=== PATIENT | male | born 1955 | race Caucasian/White ===

== ENCOUNTER → 2016-09-05 | Outpatient (CLI) | payer MEDICARE ==
--- NOTE | 2016-09-05 11:43 | ST Modified Barium Swallow ---
Recommendation - Recommendations Recommendations: 1) DIET: recommend puree and thin. No straws. Pt observed to aspirate with thin by straw. 2) Recommend speech therapy after GI issues are resolved. 3) Alternate bites and sips- to aid in clearing residuals of solids and pharynx. 4) Dry swallow after swallows of thin- to clear residuals of thin. SUMMARY: Pt presents with a moderate-severe oropharyngeal dysphagia characterized by reduced base of tongue reduced epiglottic inversion, decreased UES opening, reduced pressure generation, reduced pharyngeal peristalsis resulting in pharyngeal residuals of thin liquids and solids and aspiration of thin by straw. Alternating bites and sips observed to aid in clearing residuals of solids in valleculae and pyriforms. Dry swallow after sips of thin observed to aid in clearing residuals of thin. Medical Diagnoses - Medical Diagnoses Medical Diagnosis Description & ICD-10 Code(s): k22.2 esophgeal obstruction Other Medical Diagnoses/Co-Morbidities: weightloss, esophageal rupture in 2014, esophageal obstruction, fractured skull in 70's with x2 brain surgeries. - ICD-10 Tx Diagnosis Coding (1) Dysphagia, oropharyngeal phase ICD-10 Code(s): R13.12 - DYSPHAGIA, OROPHARYNGEAL PHASE (2) Dysphagia, pharyngeal phase ICD-10 Code(s): R13.13 - DYSPHAGIA, PHARYNGEAL PHASE (3) Dysphagia, pharyngoesophageal phase ICD-10 Code(s): R13.14 - DYSPHAGIA, PHARYNGOESOPHAGEAL PHASE ST Modified Barium Swallow - General Date: 09/05/16 Referring Physician: Jhonny Flores MD Risks/Precautions: Falls - walks with cane Date of Onset: 09/05/14 Reason for Referral: esophageal obstruction - History History obtained from: Patient, Parent/Caregiver - pt's -: Medical - Pt reports coughing and choking with meals and throughout the day. Pt's reports pt only able to eat larose soup, pea soup, and drink ensure due to difficulty swallowing. also states pt has lost 10-15 lbs in past month and a half. Pt endorses globus sensation in mid chest during meals. Pt denies history of PNA or bronchitis. Pt states had ruptured esophagus in 2014 and states majority of swallowing problems began around this time. Pt's states most recent EGD a month ago was not able to be completed due to esophageal obstruction. reports possible "EGD dialation with stent placement" to be completed. PMHx: weightloss, esophageal rupture in 2015, esophageal obstruction , fractured skull in 70's with x2 brain surgeries, diabetes. Medications: omeprozole, metformin, abilify, depakote Allergies: quetiapine fumarate - Functional Status Prior Functional Status: INDEPENDENT: feeding Current Functional Limitations: feeding - Subjective Patient/caregiver goal(s): safe swallow, r/o aspiration Cognitive-Linguistic Function: WNL Speech Intelligibility: WNL Current Nutritional Means: PO Current PO diet: Pureed, Soft Current symptoms: Weight loss, Poor intake, Coughing, c/o Globus sensation - mid chest Pain: 3/5 - chest - Objective Assessment: Upright, Left Lateral - Food Trials Used Food trials used: Thin liquids, Pureed, Soft solids The patient: Was Able to Self Feed, via cup, via spoon, via straw - Oral-Motor Skills Velo-pharyngeal function: Unremarkable Laryngeal Function: Volitional Cough, Volitional Swallow - Assessment Oral prep: Normal Labial closure: Adequate Leakage: None Mastication: Adequate Lingual Movement: Normal Oral stage: Normal for this Procedure - Pharyngeal Stage Initiation of Pharyngeal Stage Reflex: Normal Decreased laryngeal elevation: Yes - mild-moderate Reduced Velopharyngeal Closure: no Reduced pressure generation: Yes - moderate-severe reduced tongue-based retraction: Yes - moderate-severe Pre-swallow pooling in valleculae: None Pre-Swallow pooling in pyriforms: None Reduced Thyro-Hyoid approximation: Yes - mild-moderate Reduced epiglottic excursion: Yes - mild-moderate Reduced pharyngeal peristalsis/contraction: Yes - moderate Post-swallow residulas vallecular: Significant - mild on thin; moderate on puree ; moderate-severe on soft solids Post-Swallow residuals in pyriforms: Moderate - mild on thin; mild-moderate on puree and soft solids - Esophageal Stage Cricopharyngeal Function: Impaired - reduced - Fall Risk Assessment Medications/Conditions that increase fall risks include: Antidepressants, sedatives, anti-arrhythmic, diuretic, benzodiazipenes, neuroleptics. BP regulation problems, cardiac problems, balance or gait deficits, neurological problems. Is patient considered at risk for falls: yes Fall Risk Actions Taken: Pt physician notified - Behavioral Observations During evaluation process patient: was pleasant, was cooperative, able to answer questions, provided medical history - Treatment / Educational Needs: Treatment/Education Needs: Treatment consisted of patient education on the role of the Speech Pathologist. Patient's plan of care and golas were communicated as well as scheduling and attendance policies. Recommendations for initial home program were shared. Patient demonstrated understanding and verbalized agreement. Initial home program recommendations: Pt and pt's provided with verbal and written education on dysphagia, aspiration PNA, and recommendations from study. Pt and pt's asking appropriate questions. - Impression/Summary Tracheal Aspiration: yes - on thin by straw, during swallow Ineffective compensatory strategies: chin tuck Patient presents with: Pharyngeal stage dysph., Oral-Pharyngeal dysph. Risk of Aspiration: Moderate - mild-moderate Risk of nutritional compromise: Severe - Recommendations NPO: no Solid diet recommendations: Pureed Liquid Diet Modification: Thin Strict aspiration precautions: Yes Pt/Family education and followup with MD: Yes Recommended techniques: Fully Upright During Meal, Small Bites and Sips, Alternate Bites/Sips Supervision: Distant Information, Precautions and Recommendations: Patient (Written), Patient (Verbal ) - Time Total Time: 30 - Plan of Care Strategies to optimize patient understanding include:: ongoing assessment of educational needs, implementation of educational strategies, and re-education. - - -: Thank you for the opportunity to work with this patient and his/her family. Should you have any questions about this patient's plan or progress, I can be reached at [phone]. Charge G Code? - - -: Yes ST F.L. Impairment Category - Rationale Based On Rationale Based On: Clin Find., Obj Measures - Swallowing Current G8996: CK 40-59% Impaired Goal G8997: CK 40-59% Impaired Discharge G8998: CK 40-59% Impaired
== END ==
LOC: RAD 07:36
PROVIDERS: ATTEND Internal Medicine Gastroenterology
DX: K22.2 Esophageal obstruction (principal); R13.12 Dysphagia, oropharyngeal phase
CPT/HCPCS: 74230; 92611; G8996; G8997; G8998

== ENCOUNTER 2016-09-13 18:06 | Emergency (ER) | payer MEDICARE ==
--- NOTE | 2016-09-14 11:28 | EKG REPORT ---
SEVERITY:- ABNORMAL ECG - SINUS RHYTHM SHORT CT INTERVAL, ACCELERATED AV CONDUCTION PROBABLE LVH WITH SECONDARY REPOL ABNRM LATERAL INFARCT, AGE INDETERMINATE : Confirmed by: Julio Chauhan 14-Sep-2016 11:27:13
== END 2016-09-13 18:44 | disposition left against medical advice (07) ==
LOC: ER 18:06
DX: Z53.21 Procedure and treatment not carried out due to patient leaving prior to being seen by health care provider (principal)
CPT/HCPCS: 93005; 93010

== ENCOUNTER 2017-10-30 08:21 | Emergency (ER) | payer OTHER, MEDICARE ==
[2017-10-30] MEDS ORDERED: NORMAL SALINE 1000 ML 1,000 ML IV ONE (09:01)
--- NOTE | 2017-10-30 09:02 | ER Document Report ---
ED GI/ - General Chief Complaint: Vomiting Stated Complaint: VOMITING Time Seen by Provider: 10/30/17 08:40 Mode of Arrival: Ambulatory Information source: Patient Notes: 62-year-old male to the emergency department chief complaint of difficulty swallowing. Has a long-standing history of esophageal strictures I for esophageal rupture in 2015. Has had multiple dilations. Recent barium swallow which was positive for some aspiration with thin liquids. Has not been able to eat or drink anything for the last several days. reports with confidentiality that he smoked some crack and drink alcohol a couple weeks ago and this made everything worse. Followed by the [facility]. Denies any abdominal pain. Occasional shortness of breath. TRAVEL OUTSIDE OF THE [place] IN LAST 30 DAYS: No - HPI Onset: Other - Chronic Severity at maximum: Moderate Severity in ED: Moderate - Related Data Allergies/Adverse Reactions: quetiapine fumarate [From Seroquel] Allergy (Verified 10/30/17 08:25) involuntary uncontrolleable movement Past Medical History - General Information source: Patient, Relative, [facility] Records - Social History Smoking Status: Current Every Day Smoker Cigarette use (# per day): Yes Chew tobacco use (# tins/day): No Smoking Education Provided: Yes Frequency of alcohol use: Occasional Drug Abuse: Cocaine Lives with: Spouse/Significant other Family History: Reviewed & Not Pertinent - Past Medical History Cardiac Medical History: Reports: Hx Heart Attack - "silent" Endocrine Medical History: Reports: Hx Diabetes Mellitus Type 2 Psychiatric Medical History: Reports: Hx Depression Past Surgical History: Reports: Hx Tonsillectomy, Hx WELDER GAS Shunt - Immunizations Hx Diphtheria, Pertussis, Tetanus Vaccination: Yes Hx Pneumococcal Vaccination: 06/13/11 Review of Systems - Review of Systems Constitutional: Malaise, Weakness. denies: Fever EENT: Throat pain, Difficulty swallowing. denies: Blurred vision, Nose pain, Mouth pain, Mouth swelling Cardiovascular: Palpitations. denies: Chest pain, Heart racing Respiratory: Short of breath. denies: Hurts to breathe, Wheezing Gastrointestinal: Abdominal pain, Vomiting. denies: Diarrhea, Nausea Musculoskeletal: denies: Back pain, Gout, Joint pain Skin: denies: Dryness, Lesions, Rash Hematologic/Lymphatic: denies: Anemia, Blood clots, Easy bleeding, Easy bruising Neurological/Psychological: denies: Confusion, Dementia, Weakness, Numbness Physical Exam - Vital signs Vitals: Temp Pulse Resp BP Pulse Ox 97.3 F 115 H 18 106/62 100 10/30/17 08:30 10/30/17 08:30 10/30/17 08:30 10/30/17 08:30 10/30/17 08:30 Interpretation: Tachycardic - General General appearance: Appears well, Alert Notes: Thin, frail cachectic looking individual - HEENT Head: Normocephalic, Atraumatic Eyes: Normal Pupils: PERRL - Respiratory Respiratory status: No respiratory distress Chest status: Nontender Breath sounds: Normal Chest palpation: Normal - Cardiovascular Rhythm: Tachycardia Heart sounds: Normal auscultation Murmur: No - Abdominal Inspection: Normal, Other - Large midline abdominal scar, skin is hanging off of the torso demonstrating significant weight loss Distension: No distension Bowel sounds: Normal Tenderness: Nontender Organomegaly: No organomegaly - Back Back: Normal, Nontender - Extremities General upper extremity: Normal inspection, Nontender, Normal color, Normal ROM , Normal temperature General lower extremity: Normal inspection, Nontender, Normal color, Normal ROM , Normal temperature, Normal weight bearing. No: Lucina's sign - Neurological Neuro grossly intact: Yes Cognition: Normal Orientation: AAOx4 Dean Coma Scale Eye Opening: Spontaneous Dean Coma Scale Verbal: Oriented [place] Coma Scale Motor: Obeys Commands Dean Coma Scale Total: 15 Speech: Normal Motor strength normal: LUE, RUE, LLE, RLE Sensory: Normal - Psychological Associated symptoms: Normal affect, Normal mood - Skin Skin Temperature: Warm Skin Moisture: Dry Skin Color: Normal Course - Re-evaluation Re-evalutation: 10/30/17 09:26 The patient with chronic esophageal strictures and difficulty with eating. Will get basic labs. Smells of light ketosis. Will get chest x-ray, IV, IV fluids, basic labs and reassess. Patient demonstrating significant signs of wasting may need to be admitted. Will discuss with patient possibility of that as well. 10/30/17 13:18 Laboratory 10/30/17 10/30/17 10/30/17 09:22 09:40 11:40 WBC 19.9 H RBC 6.25 H Hgb 13.9 Hct 44.2 MCV 71 L MCH 22.2 L MCHC 31.5 L RDW 29.6 H Plt Count 368 Total Counted 100 Seg Neutrophils % Not Reportable Seg Neuts % (Manual) 88 H Lymphocytes % Not Reportable Lymphocytes % (Manual) 11 L Monocytes % Not Reportable Monocytes % (Manual) 1 L Eosinophils % Not Reportable Eosinophils % (Manual) 0 Basophils % Not Reportable Basophils % (Manual) 0 Absolute Neutrophils Not Reportable Abs Neuts (Manual) 17.5 H Absolute Lymphocytes Not Reportable Abs Lymphs (Manual) 2.2 Absolute Monocytes Not Reportable Abs Monocytes (Manual) 0.2 Absolute Eosinophils Not Reportable Absolute Eos (Manual) 0.0 Absolute Basophils Not Reportable Abs Basophils (Manual) 0.0 Toxic Granulation SLIGHT Platelet Comment ADEQUATE Hypochromasia 1+ Anisocytosis 3+ Microcytosis 2+ Target Cells 1+ Schistocytes 1+ VBG pH 7.41 VBG pCO2 63.0 VBG HCO3 39.3 H VBG Base Excess 11.8 Sodium 147.1 H Potassium 3.7 Chloride 92 L Carbon Dioxide 34 H Anion Gap 21 H BUN 33 H Creatinine 0.98 Est GFR ( Amer) > 60 Est GFR (Non-Af Amer) > 60 Glucose 140 H Calcium 10.6 H Total Bilirubin 1.0 Direct Bilirubin 0.8 H Neonat Total Bilirubin Not Reportable Neonat Direct Bilirubin Not Reportable Neonat Indirect Bili Not Reportable AST 24 ALT 31 Alkaline Phosphatase 158 H Troponin I Total Protein 8.8 H Albumin 4.7 Lipase 194.0 Serum Alcohol < 10 10/30/17 11:40 WBC RBC Hgb Hct MCV MCH MCHC RDW Plt Count Total Counted Seg Neutrophils % Seg Neuts % (Manual) Lymphocytes % Lymphocytes % (Manual) Monocytes % Monocytes % (Manual) Eosinophils % Eosinophils % (Manual) Basophils % Basophils % (Manual) Absolute Neutrophils Abs Neuts (Manual) Absolute Lymphocytes Abs Lymphs (Manual) Absolute Monocytes Abs Monocytes (Manual) Absolute Eosinophils Absolute Eos (Manual) Absolute Basophils Abs Basophils (Manual) Toxic Granulation Platelet Comment Hypochromasia Anisocytosis Microcytosis Target Cells Schistocytes VBG pH VBG pCO2 VBG HCO3 VBG Base Excess Sodium Potassium Chloride Carbon Dioxide Anion Gap BUN Creatinine Est GFR ( Amer) Est GFR (Non-Af Amer) Glucose Calcium Total Bilirubin Direct Bilirubin Neonat Total Bilirubin Neonat Direct Bilirubin Neonat Indirect Bili AST ALT Alkaline Phosphatase Troponin I 0.061 Total Protein Albumin Lipase Serum Alcohol Chest X-Ray 10/30/17 09:01 IMPRESSION: NO ACUTE RADIOGRAPHIC FINDING IN THE CHEST. Chest CT 10/30/17 11:38 IMPRESSION: Thick walled esophagus with esophageal air fluid level from reflux. Diffuse esophagitis is suspected. No mediastinal air or free fluid worrisome for esophageal rupture Esophagus X-Ray 10/30/17 11:38 IMPRESSION: Diffusely abnormal esophagus. Diffuse mucosal irregularity from the thoracic inlet through the GE junction. Long segment of stricture from the denae to the GE junction. Findings most likely represent stricture and esophagitis from reflux. Superimposed infection with Janessa, superimposed superficial mucosal tumor could not be excluded. Findings discussed with Dr. Bender in the emergency room Patient has an elevated WBC count, cachectic and slightly elevated troponin. Unchanged EKG from prior. Patient needs to be seen at a hospital that has horticultural services supervisor as well as a consult for cardiothoracic surgery as I believe patient would likely benefit from having a partial esophagectomy. There is a high concern in my opinion that this is malignancy causing worsening issues. I have contacted the [facility] in [place]. Attempting to transfer at this time. 10/30/17 14:17 Have been able to consult with [facility]. Dr. Carson accepting. Waiting on transfer at this time. We will continue to trend the troponins. 10/30/17 14:29 10/30/17 16:27 Second troponin slightly elevated as well as 0.066. Aspirin has been given. IV placed in the left AC under ultrasound guidance. No complications. Patient has been accepted and will transfer shortly. Of note, did not start on Lovenox or heparin due to the fact the patient has previous history of esophageal rupture and concerned at this time for significant esophagitis and there is an increased risk for bleeding. Do not feel compelled at this time to overly treat the slightly elevated troponin. Giving second liter of fluid at this time. Zosyn has been given. Pain medication given. 10/30/17 16:28 - Vital Signs Vital signs: Temp Pulse Resp BP Pulse Ox 97.3 F 115 H 16 90/79 L 97 10/30/17 08:30 10/30/17 08:30 10/30/17 16:06 10/30/17 16:06 10/30/17 16:06 - Laboratory Result Diagrams: 10/30/17 11:40 10/30/17 09:40 Laboratory results interpreted by me: 10/30/17 10/30/17 10/30/17 09:22 09:40 11:40 WBC 19.9 H RBC 6.25 H MCV 71 L MCH 22.2 L MCHC 31.5 L RDW 29.6 H Seg Neuts % (Manual) 88 H Lymphocytes % (Manual) 11 L Monocytes % (Manual) 1 L Abs Neuts (Manual) 17.5 H VBG HCO3 39.3 H Sodium 147.1 H Chloride 92 L Carbon Dioxide 34 H Anion Gap 21 H BUN 33 H Glucose 140 H Calcium 10.6 H Direct Bilirubin 0.8 H Alkaline Phosphatase 158 H Total Protein 8.8 H - EKG Interpretation by Mn EKG shows normal: Sinus rhythm, Intervals, QRS Complexes, ST-T Waves Randle/QRS: Left axis deviation Critical Care Note - Critical Care Note Total time excluding time spent on procedures (mins): 45 Comments: Hypotension, leukocytosis, coordination of care, transfer to higher level of care. Discharge - Discharge Clinical Impression: Esophageal stricture, Esophagitis, Elevated troponin I level Leukocytosis Qualifiers: Leukocytosis type: bandemia Qualified Code(s): D72.825 - Bandemia Condition: Good Disposition: [facility]
[2017-10-30] MEDS ORDERED: ONDANSETRON HCL INJ/PF 4 MG/2 ML SDV IV ONE ×2 (09:27→11:16)
--- NOTE | 2017-10-30 09:37 | RADIOLOGY REPORT (SQ) ---
EXAM DESCRIPTION: CHEST SINGLE VIEW COMPLETED DATE/TIME: 10/30/2017 9:18 am REASON FOR STUDY: sob COMPARISON: 05/15/2015 EXAM PARAMETERS: NUMBER OF VIEWS: One view. TECHNIQUE: Single frontal radiographic view of the chest acquired. RADIATION DOSE: NA LIMITATIONS: None. FINDINGS: LUNGS AND PLEURA: No opacities, masses or pneumothorax. No pleural effusion. MEDIASTINUM AND HILAR STRUCTURES: No masses. Contour normal. HEART AND VASCULAR STRUCTURES: Heart normal in size. Normal vasculature. BONES: No acute findings. HARDWARE: None in the chest. OTHER: No other significant finding. IMPRESSION: NO ACUTE RADIOGRAPHIC FINDING IN THE CHEST. TECHNICAL DOCUMENTATION: JOB ID: [id number] [employer]- All Rights Reserved Reading location - IP/workstation name: [email or web address]
[2017-10-30 09:51] LABS: VENOUS BLOOD BASE EXCESS 11.8 mmol/L; VENOUS BLOOD HCO3 39.3 mmol/L (20-32); VENOUS BLOOD PH 7.41 (7.30-7.42)
[2017-10-30 10:10] LABS: ALANINE AMINOTRANSFERASE 31 U/L (21-72); ALBUMIN 4.7 g/dL (3.5-5.0); ALCOHOL < 10 mg/dL (NONE DETECTED); ALKALINE PHOSPHATASE 158 U/L (38-126); ASPARTATE AMINO TRANSFERASE 24 U/L (17-59); BILIRUBIN,DIRECT 0.8 mg/dL (0.0-0.4); BLOOD UREA NITROGEN 33 mg/dL (7-20); CALCIUM 10.6 mg/dL (8.4-10.2); CARBON DIOXIDE 34 mmol/L (22-30); CHLORIDE 92 mmol/L (98-107); GLUCOSE 140 mg/dL (75-110); POTASSIUM 3.7 mmol/L (3.6-5.0); TOTAL PROTEIN 8.8 g/dL (6.3-8.2)
[2017-10-30 10:15] LABS: ANION GAP 21 (5-19); SODIUM 147.1 mmol/L (137-145)
[2017-10-30] MEDS ORDERED: FENTANYL CITRATE INJ/PF 100 MCG/2 ML AMPUL IV ONE (11:16)
[2017-10-30] MEDS ORDERED: FAMOTIDINE INJ/PF 20 MG/2 ML SDV IV ONE (11:16)
[2017-10-30 12:03] LABS: HEMATOCRIT 44.2 % (37.9-51.0); HEMOGLOBIN 13.9 g/dL (13.5-17.0); MEAN CORPUSCULAR HEMOGLOBIN 22.2 pg (27.0-33.4); MEAN CORPUSCULAR HGB CONC 31.5 g/dL (32.0-36.0); MEAN CORPUSCULAR VOLUME 71 fl (80-97); PLATELET COUNT 368 10^3/uL (150-450); RED BLOOD COUNT 6.25 10^6/uL (4.35-5.55); RED CELL DISTRIBUTION WIDTH 29.6 % (11.5-14.0); WHITE BLOOD COUNT 19.9 10^3/uL (4.0-10.5)
[2017-10-30 12:20] LABS: ABSOLUTE LYMPHOCYTES# (MANUAL) 2.2 10^3/uL (0.5-4.7); ABSOLUTE MONOCYTES # (MANUAL) 0.2 10^3/uL (0.1-1.4); ABSOLUTE NEUTROPHILS# (MANUAL) 17.5 10^3/uL (1.7-8.2); BASOPHILS % (MANUAL) 0 % (0-2); EOSINOPHILS % (MANUAL) 0 % (0-6); LYMPHOCYTES % (MANUAL) 11 % (13-45); MONOCYTES % (MANUAL) 1 % (3-13); SEGMENTED NEUTROPHILS % (MAN) 88 % (42-78); TOTAL CELLS COUNTED 100
[2017-10-30 12:21] LABS: ANISOCYTOSIS 3+; HYPOCHROMASIA 1+; TOXIC GRANULATION SLIGHT
[2017-10-30 12:22] LABS: PLATELET COMMENT ADEQUATE; SCHISTOCYTES 1+; TARGET CELLS 1+
[2017-10-30] MEDS ORDERED: PIPERACILLIN/TAZOBACTAM 3.375 GM VIAL IV ONE (13:03)
--- NOTE | 2017-10-30 13:03 | RADIOLOGY REPORT (SQ) ---
EXAM DESCRIPTION: CT CHEST WITH COMPLETED DATE/TIME: 10/30/2017 12:10 pm REASON FOR STUDY: chest pain, hx of esophageal rupture COMPARISON: CT angio chest 05/15/2015 Chest films 05/27/2012, 12/31/2012, 05/15/2015, 10/30/2017 TECHNIQUE: CT scan of the chest performed using helical scanning technique with dynamic intravenous contrast injection. Images reviewed with lung, soft tissue and bone windows. Reconstructed coronal and sagittal MPR images reviewed. All images stored on PACS. All CT scanners at this facility use dose modulation, iterative reconstruction, and/or weight based d osing when appropriate to reduce radiation dose to as low as reasonably achievable (ALARA). [facility]: Dose Right [facility]: CareDose [facility]: Dose Right [facility]: Teradose 4D [facility]: Cartilix CONTRAST TYPE AND DOSE: contrast/concentration: Isovue 370.00 mg/ml; Total Contrast Delivered: 75.7 ml; Total Saline Delivered: 20.0 ml RENAL FUNCTION: Creatinine 0.98 RADIATION DOSE: CT Rad equipment meets quality standard of care and radiation dose reduction techniq ues were employed. CTDIvol: 5.2 mGy. DLP: 212 mGy-cm. . LIMITATIONS: None. FINDINGS: LUNGS AND PLEURA: Mild changes of centrilobular emphysema in the upper lobes bilaterally. Bandlike scarring in the bilateral posterior costophrenic sulci. No acute infiltrates. No pleural effusion. No pneumothorax. HILAR AND MEDIASTINAL STRUCTURES: Esophagus is diffusely abnormal. There is extensive esophageal wal l thickening. An air-fluid level in the esophagus is present from reflux. This puts the patient at risk for aspiration pneumonia. No mediastinal air. No abnormal mediastinal fluid. HEART AND VASCULAR STRUCTURES: No aneurysm or dissection. No central pulmonary emboli. No pericardi al effusion. HARDWARE: None in the chest. UPPER ABDOMEN: No significant findings. Limited exam. THYROID AND OTHER SOFT TISSUES: No masses. No adenopathy. BONES: Old T10 compression deformity OTHER: No other significant finding. IMPRESSION: Thick walled esophagus with esophageal air fluid level from reflux. Diffuse esophagitis is suspected. No mediastinal air or free fluid worrisome for esophageal rupture TECHNICAL DOCUMENTATION: JOB ID: [id number] Quality ID # [id number]: Final reports with documentation of one or more dose reduction techniques (e.g., Au tomated exposure control, adjustment of the mA and/or kV according to patient size, use of iterative reconstruction technique) 2010 [employer]- All Rights Reserved Reading location - IP/workstation name: [facility] [email or web address]
--- NOTE | 2017-10-30 13:13 | RADIOLOGY REPORT (SQ) ---
EXAM DESCRIPTION: BARIUM SWALLOW ESOPHAGUS COMPLETED DATE/TIME: 10/30/2017 12:44 pm REASON FOR STUDY: hx of esophageal stricture COMPARISON: Cookie swallow 09/05/2016 CT chest 10/30/2017, 05/15/2015 TECHNIQUE: Under fluoroscopic guidance, patient ingested effervescent granules followed by thick and thin barium. Fluoroscopic spot images and routine radiographic images acquired and stored on PACS. 12 MM BARIUM TABLET GIVEN: no LIMITATIONS: None. FLUOROSCOPY TIME: FLUORO TIME: 1 minutes 45 seconds 9 series of digital images saved to PACS. FINDINGS: NEUROMUSCULAR COORDINATION OF SWALLOW: No subglottic aspiration on today's study. Please note patient aspirated thin liquid barium during video assisted speech pathology swelling study 2016. ESOPHAGEAL MOTILITY: Diffuse decreased motility ESOPHAGEAL MUCOSA: Esophagus is diffusely thick walled. There is a long segment of profound mucosal irregularity, from the upper esophagus through the GE junction. From the denae down through the GE junction, a long segment of diffuse narrowing is present with a t ight stricture measuring about 6 mm in greatest diameter. Findings are worrisome for diffuse reflux esophagitis. Superimposed Janessa could not be excluded. Because of the diffuse irregularity, diffuse metaplasia of the mucosa/tumor could not be excluded. Findings discussed with Dr. Bender in the emergency room GASTRO-ESOPHAGEAL JUNCTION: No hiatal hernia. Unprovoked gastroesophageal reflux NON-GI TRACT STRUCTURES: No significant finding. OTHER: No other significant finding. IMPRESSION: Diffusely abnormal esophagus. Diffuse mucosal irregularity from the thoracic inlet thro ugh the GE junction. Long segment of stricture from the denae to the GE junction. Findings most li luis represent stricture and esophagitis from reflux. Superimposed infection with Janessa, superimpo sed superficial mucosal tumor could not be excluded. Findings discussed with Dr. Bender in the emergency room COMMENT: Quality ID [id number]: Final reports for procedures using fluoroscopy that document radiation exp osure indices, or exposure time and number of fluorographic images (if radiation exposure indices are not available) TECHNICAL DOCUMENTATION: JOB ID: [id number] [employer]- All Rights Reserved Reading location - IP/workstation name: [email or web address]
[2017-10-30] MEDS ORDERED: ASPIRIN 300 MG SUPP, RECTAL PR ONE (13:21)
[2017-10-30] MEDS ORDERED: POTASSI CL 20 MEQ/D5-1/2NS 1L 1,000 ML IV ONE (14:19)
--- NOTE | 2017-10-30 15:52 | EKG REPORT ---
SEVERITY:- ABNORMAL ECG - SINUS RHYTHM PROBABLE LVH WITH SECONDARY REPOL ABNRM BORDERLINE INFERIOR Q WAVES LATERAL INFARCT, AGE INDETERMINATE BORDERLINE PROLONGED QT INTERVAL : Confirmed by: Julio Chauahn 30-Oct-2017 15:51:33
[2017-10-30] MEDS ORDERED: FENTANYL CITRATE INJ/PF 100 MCG/2 ML AMPUL IV PRN (16:28)
[2017-10-30 17:34] VITALS: BP 111/78
--- NOTE | 2017-10-30 17:34 | ER Document Report ---
Doctor's Note Notes: 10/30/17 17:34 Pt evaluated and is stable at this time
== END 2017-10-30 17:47 | disposition short-term general hospital (02) ==
LOC: ER 08:21
DX: K22.2 Esophageal obstruction (principal); K20.9 Esophagitis, unspecified; R74.8 Abnormal levels of other serum enzymes; D72.825 Bandemia; I95.9 Hypotension, unspecified; I25.2 Old myocardial infarction; F14.10 Cocaine abuse, uncomplicated; E11.9 Type 2 diabetes mellitus without complications; R53.81 Other malaise; R53.1 Weakness; R00.2 Palpitations; R10.9 Unspecified abdominal pain; R11.10 Vomiting, unspecified; R00.0 Tachycardia, unspecified; R06.02 Shortness of breath; F17.210 Nicotine dependence, cigarettes, uncomplicated; Z88.8 Allergy status to other drugs, medicaments and biological substances
CPT/HCPCS: 93005; 99285; 36415; 80307; 82550; 83690; 85025; 80053; 84484; 82803; 71045; 74220; 71260; 93010; J3490; J3010; J3480; J2405; J7030; S0028; J2543

== ENCOUNTER 2017-11-12 22:14 | Emergency (ER) | payer OTHER, MEDICARE ==
[2017-11-12 23:12] LABS: HEMATOCRIT 42.6 % (37.9-51.0); MEAN CORPUSCULAR HEMOGLOBIN 22.1 pg (27.0-33.4); MEAN CORPUSCULAR HGB CONC 30.6 g/dL (32.0-36.0); MEAN CORPUSCULAR VOLUME 72 fl (80-97); PLATELET COUNT 467 10^3/uL (150-450); RED BLOOD COUNT 5.91 10^6/uL (4.35-5.55); RED CELL DISTRIBUTION WIDTH 30.1 % (11.5-14.0); WHITE BLOOD COUNT 12.5 10^3/uL (4.0-10.5)
[2017-11-12 23:33] LABS: ALANINE AMINOTRANSFERASE 20 U/L (21-72); ALBUMIN 4.4 g/dL (3.5-5.0); ALKALINE PHOSPHATASE 166 U/L (38-126); ANION GAP 19 (5-19); ASPARTATE AMINO TRANSFERASE 28 U/L (17-59); BILIRUBIN,DIRECT 0.6 mg/dL (0.0-0.4); BILIRUBIN,TOTAL 0.8 mg/dL (0.2-1.3); BLOOD UREA NITROGEN 9 mg/dL (7-20); CALCIUM 10.3 mg/dL (8.4-10.2); CARBON DIOXIDE 32 mmol/L (22-30); CHLORIDE 94 mmol/L (98-107); CREATINE KINASE 61 U/L (55-170); GLUCOSE 48 mg/dL (75-110); POTASSIUM 3.6 mmol/L (3.6-5.0); TOTAL PROTEIN 8.5 g/dL (6.3-8.2)
[2017-11-12 23:43] LABS: CREATINE KINASE MB 2.09 ng/mL (<4.55)
[2017-11-12 23:46] LABS: TROPONIN I 0.043 ng/mL
[2017-11-12 23:49] LABS: ABSOLUTE LYMPHOCYTES# (MANUAL) 4.4 10^3/uL (0.5-4.7); ABSOLUTE MONOCYTES # (MANUAL) 0.9 10^3/uL (0.1-1.4); BASOPHILS % (MANUAL) 0 % (0-2); EOSINOPHILS % (MANUAL) 2 % (0-6); LYMPHOCYTES % (MANUAL) 35 % (13-45); MONOCYTES % (MANUAL) 7 % (3-13); SEGMENTED NEUTROPHILS % (MAN) 56 % (42-78); TOTAL CELLS COUNTED 100
[2017-11-12 23:50] LABS: ACANTHOCYTES SLIGHT; ANISOCYTOSIS 4+; BURR CELLS 1+; OVALOCYTES SLIGHT; PLATELET COMMENT INCREASED; PLATELET LARGE PRESENT; POIKILOCYTOSIS 2+; TARGET CELLS 1+; TOXIC VACUOLATION PRESENT
[2017-11-12 23:51] LABS: PLATELET GIANT PRESENT
[2017-11-12 23:52] LABS: HYPOCHROMASIA 1+
--- NOTE | 2017-11-12 23:58 | RADIOLOGY REPORT (SQ) ---
EXAM DESCRIPTION: CHEST SINGLE VIEW COMPLETED DATE/TIME: 11/12/2017 11:37 pm REASON FOR STUDY: CP COMPARISON: 10/30/2017 EXAM PARAMETERS: NUMBER OF VIEWS: One view. TECHNIQUE: Single frontal radiographic view of the chest acquired. RADIATION DOSE: NA LIMITATIONS: None. FINDINGS: LUNGS AND PLEURA: Stable pulmonary exam again demonstrating right lung base scarring and c entrilobular emphysematous change. No focal consolidation. No pneumothorax. No pleural effusion. MEDIASTINUM AND HILAR STRUCTURES: No masses. Contour normal. HEART AND VASCULAR STRUCTURES: Heart normal in size. Normal vasculature. BONES: Healed right rib fracture deformity. HARDWARE: None in the chest. OTHER: No other significant finding. IMPRESSION: Stable centrilobular emphysematous change and right lung base scarring. No evidence of acute cardiopulmonary abnormality. TECHNICAL DOCUMENTATION: JOB ID: [id number] [employer]- All Rights Reserved Reading location - IP/workstation name: [email or web address]
[2017-11-13] MEDS ORDERED: PROMETHAZINE HCL INJ 25 MG/1 ML VIAL IM ONE (01:05)
[2017-11-13] MEDS ORDERED: NORMAL SALINE 1000 ML 1,000 ML IV ONE (01:05)
--- NOTE | 2017-11-13 01:07 | ER Document Report ---
ED General - General Chief Complaint: Chest Pain Stated Complaint: CHEST PAIN Time Seen by Provider: 11/13/17 00:58 Notes: Patient is a 62-year-old male comes emergency department for chief complaint of vomiting and pain in his chest. He states that 2 days ago he used cocaine, states that he has vomited between 5-10 times since then, he has vomited a few flecks of blood, he states that whenever he tries to eat or drink he vomits. He states that he was told he has an esophageal stricture that needs to be repaired and will be repaired within the next 2 weeks. He was transferred to [facility] from this facility at the end of last month. He also has a history of esophageal perforation. He denies alcohol, he does smoke. He states he had a cardiac catheterization 2 years ago, did not have any stents placed. He states that he did not have chest pain until this afternoon, has been having it intermittently. He denies fever, shortness of breath, alcohol use. TRAVEL OUTSIDE OF THE [place] IN LAST 30 DAYS: No - Related Data Allergies/Adverse Reactions: quetiapine fumarate [From Seroquel] Allergy (Verified 10/30/17 08:25) involuntary uncontrolleable movement Past Medical History - General Information source: Patient, Relative - - Social History Smoking Status: Current Every Day Smoker Frequency of alcohol use: Occasional Drug Abuse: Cocaine Lives with: Spouse/Significant other Family History: Reviewed & Not Pertinent - Past Medical History Cardiac Medical History: Reports: Hx Coronary Artery Disease Endocrine Medical History: Reports: Hx Diabetes Mellitus Type 2 Renal/ Medical History: Denies: Hx Peritoneal Dialysis GI Medical History: Reports: Hx Ulcer Psychiatric Medical History: Reports: Hx Depression Past Surgical History: Reports: Hx Abdominal Surgery - ruptured ulcer, Hx Tonsillectomy, Hx MESH MAN Shunt - Immunizations Hx Diphtheria, Pertussis, Tetanus Vaccination: Yes Hx Pneumococcal Vaccination: 06/13/11 Review of Systems - Review of Systems Constitutional: No symptoms reported EENT: No symptoms reported Cardiovascular: See HPI Respiratory: No symptoms reported Gastrointestinal: See HPI Genitourinary: No symptoms reported Male Genitourinary: No symptoms reported Musculoskeletal: No symptoms reported Skin: No symptoms reported Hematologic/Lymphatic: No symptoms reported Neurological/Psychological: No symptoms reported Physical Exam - Vital signs Vitals: Temp Pulse Resp BP Pulse Ox 98.5 F 82 22 H 152/81 H 96 04/02/18 22:14 11/12/17 22:14 11/12/17 22:14 11/12/17 22:14 11/12/17 22:14 Interpretation: Normal - General General appearance: Alert, Anxious In distress: Mild - patient dry heaving; patient is very thin and frail in appearance - HEENT Head: Normocephalic, Atraumatic Eyes: Normal Conjunctiva: Normal Extraocular movements intact: Yes Eyelashes: Normal Pupils: PERRL Mouth/Lips: Normal Mucous membranes: Normal Pharynx: Normal Neck: Normal - Respiratory Respiratory status: No respiratory distress Chest status: Nontender Breath sounds: Normal. No: Decreased air movement, Wheezing Chest palpation: Normal - Cardiovascular Rhythm: Regular. No: Tachycardia Heart sounds: Normal auscultation, S1 appreciated, S2 appreciated Murmur: No Normal capillary refill: Yes - Abdominal Inspection: Normal Distension: No distension Bowel sounds: Normal Tenderness: Tender - Mild generalized epigastric tenderness. No: Guarding - Back Back: Normal, Nontender. No: Tender - Extremities General upper extremity: Normal inspection, Nontender, Normal strength, Normal temperature General lower extremity: Normal inspection, Nontender, Normal strength, Normal temperature. No: Edema - Neurological Neuro grossly intact: Yes Cognition: Normal Orientation: AAOx4 Dean Coma Scale Eye Opening: Spontaneous Dean Coma Scale Verbal: Oriented Heidrick Coma Scale Motor: Obeys Commands Heidrick Coma Scale Total: 15 Speech: Normal Cranial nerves: Normal Cerebellar coordination: Normal Motor strength normal: LUE, RUE, LLE, RLE Additional motor exam normals: Equal return to vendor Sensory: Normal - Psychological Associated symptoms: Normal affect, Normal mood - Skin Skin Temperature: Warm Skin Moisture: Dry Skin Color: Normal Course - Re-evaluation Re-evalutation: EKG shows sinus bradycardia at a rate of 48, T-wave inversion in V3, V4, V5, flattened T waves laterally, no significant change from prior. Patient did complain of chest pain, EKG was repeated, EKG shows ST elevation anteriorly, significantly change from prior. Patient was given a dose of Valium. Patient stating he thought he threw up some blood earlier but he is not sure. He cannot take any pills by mouth. Aspirin will be held at this time , given Valium for possible vasospasms. Chest x-ray unremarkable. Initial troponin indeterminate, will cycle. Patient was discussed with Dr. Abdi. Second troponin is downtrending. Patient attempted to drink water but then threw it up again. Given Protonix, nausea medication. Patient is much more comfortable now after the Valium, denies any chest pain or current symptoms. 11/13/17 03:00 Spoke to . She states that patient went to [facility], they were unable to perform an endoscopy because of the difficulty with his tortuous esophagus, states that he was scheduled for an esophageal dilation on December 03 with [facility], she states that patient has gone through a cycle of his current condition where he has vomiting and pain once a month because he drinks alcohol and smokes crack cocaine once a month. She states that he has been vomiting at home but she denies any hematemesis. She states he cannot tolerate any solid foods at baseline and is on a liquid diet at all times. Again discussed with Dr. Abdi. Recommends transfer to [facility] for cardiology coverage because of his EKG changes. Patient does have nitroglycerin in place. Patient is also getting dextrose and D5 half-normal continuous at a low rate because of hypoglycemia and inability to take PO. Still not complaining of any current chest pain. Discussed with patient and family, they request [facility]. Called and spoke with Dr. Vann, he requests to see the EKGs. Dr. Vann call back, patient will be accepted for transfer. - Vital Signs Vital signs: Temp Pulse Resp BP Pulse Ox 98.5 F 82 21 H 144/75 H 100 11/12/17 22:14 11/12/17 22:14 11/13/17 04:01 11/13/17 04:01 11/13/17 03:01 - Laboratory Result Diagrams: 11/12/17 21:36 11/12/17 21:36 Laboratory results interpreted by me: 11/12/17 11/12/17 11/13/17 21:36 21:36 03:30 WBC 12.5 H RBC 5.91 H Hgb 13.0 L MCV 72 L MCH 22.1 L MCHC 30.6 L RDW 30.1 H Plt Count 467 H Chloride 94 L Carbon Dioxide 32 H Glucose 48 L POC Glucose 57 L Calcium 10.3 H Direct Bilirubin 0.6 H ALT 20 L Alkaline Phosphatase 166 H Total Protein 8.5 H Discharge - Discharge Clinical Impression: Cocaine abuse, Acute electrocardiogram changes Chest pain Qualifiers: Chest pain type: unspecified Qualified Code(s): R07.9 - Chest pain, unspecified Vomiting Qualifiers: Vomiting type: unspecified Vomiting Intractability: unspecified Nausea presence : unspecified Qualified Code(s): R11.10 - Vomiting, unspecified Dysphagia Qualifiers: Dysphagia type: unspecified Qualified Code(s): R13.10 - Dysphagia, unspecified Condition: Stable Disposition: [facility], 1928–1983 Referrals: MAXIME BARRIOS MD [Primary Care Provider] - Follow up as needed
[2017-11-13] MEDS ORDERED: DIAZEPAM INJ 10 MG/2 ML DISP.SYRIN IV ONE ×2 (01:19→06:28)
[2017-11-13] MEDS ORDERED: DIAZEPAM INJ 10 MG/2 ML DISP.SYRIN ONE (01:25)
[2017-11-13 01:54] LABS: LIPASE 51.2 U/L (23-300)
[2017-11-13 01:57] LABS: ALCOHOL < 10 mg/dL (NONE DETECTED)
[2017-11-13] MEDS ORDERED: PANTOPRAZOLE SODIUM 40 MG VIAL IV ONE (03:06)
[2017-11-13] MEDS ORDERED: DEXTROSE 50%-WATER 25 GM/50 ML DISP.SYRIN IV ONE (03:33)
[2017-11-13] MEDS ORDERED: POTASSI CL 20 MEQ/D5-1/2NS 1L 1,000 ML IV PRN (03:35)
[2017-11-13] MEDS ORDERED: NITROGLYCERIN 2% OINTMENT 1 GM PACKET TP ONE (03:37)
[2017-11-13 08:56] VITALS: BP 137/82
--- NOTE | 2017-11-13 10:46 | EKG REPORT ---
SEVERITY:- ABNORMAL ECG - SINUS RHYTHM VENTRICULAR PREMATURE COMPLEX PROBABLE LVH WITH SECONDARY REPOL ABNRM BORDERLINE PROLONGED QT INTERVAL : Confirmed by: Julio Chauhan 13-Nov-2017 10:45:54
--- NOTE | 2017-11-13 10:46 | EKG REPORT ---
SEVERITY:- ABNORMAL ECG - SINUS RHYTHM NONSPECIFIC INTRAVENTRICULAR CONDUCTION DELAY PROBABLE LVH WITH SECONDARY REPOL ABNRM : Confirmed by: Julio Chauhan 13-Nov-2017 10:46:35
== END 2017-11-13 09:03 | disposition short-term general hospital (02) ==
LOC: ER 22:14
DX: R07.9 Chest pain, unspecified (principal); R94.31 Abnormal electrocardiogram [ECG] [EKG]; K22.2 Esophageal obstruction; E11.649 Type 2 diabetes mellitus with hypoglycemia without coma; R00.1 Bradycardia, unspecified; R10.816 Epigastric abdominal tenderness; F14.10 Cocaine abuse, uncomplicated; R11.10 Vomiting, unspecified; I25.10 Atherosclerotic heart disease of native coronary artery without angina pectoris; F17.200 Nicotine dependence, unspecified, uncomplicated; Z88.8 Allergy status to other drugs, medicaments and biological substances
CPT/HCPCS: 93005 ×2; 96376; 99285; 96372; 96361; 96375; 96365; 96366; 36415; 82553; 82962; 80307; 82550; 83690; 85025; 80053; 84484; 71045; 93010 ×2; J3490; J3360; J3480; S0164; J2550; J7030